=== PATIENT | male | born 1945 | race Caucasian/White ===

== ENCOUNTER → 2017-05-19 | Outpatient (REF) ==
[~2017-05-19] MED LIST: ASPIRIN E.C. 8181 MG PO; CARDURA4 MG PO; COMBIRESP IH; MULTIPLE VITAMI1 CAP PO; PRILOSEC 20MG20 MG PO; VITAMIN D1000 IU PO
[2017-05-19 12:27] LABS: THYROID STIMULATING HORMONE 0.744 uIU/mL (0.465-4.680)
[2017-05-19 12:38] LABS: PSA-TOTAL < 0.10 ng/mL (0-4)
== END ==
LOC: ZLAB.STJ 11:32
PROVIDERS: Internal Medicine
DX: Z01.89 Encounter for other specified special examinations (principal)
CPT/HCPCS: G0103

== ENCOUNTER → 2018-05-18 | Outpatient (REF) ==
[2018-05-18 17:13] LABS: PSA-TOTAL < 0.10 ng/mL (0-4)
== END ==
LOC: ZLAB.WCH 16:13
PROVIDERS: Internal Medicine
DX: Z01.89 Encounter for other specified special examinations (principal)
CPT/HCPCS: G0103

== ENCOUNTER → 2018-07-19 | Outpatient (REF) | LOC: ZLAB.WCH 16:05 | DX: Z01.89 Encounter for other specified special examinations (principal) ==

== ENCOUNTER → 2018-07-23 | Outpatient (REF) | LOC: COL.CARD 16:23 | DX: Z01.818 Encounter for other preprocedural examination (principal) ==

== ENCOUNTER → 2019-09-08 | Outpatient (CLI) | payer MEDICARE, BC | LOC: COL.PUL 10:36 | DX: R06.02 Shortness of breath (principal) ==

== ENCOUNTER → 2021-01-24 | Outpatient (REF) | LOC: ZLAB.WCH 18:06 | DX: Z01.89 Encounter for other specified special examinations (principal) ==

== ENCOUNTER → 2022-12-09 | Outpatient (REF) | LOC: COL.CARD 11:23 | DX: I49.3 Ventricular premature depolarization (principal) ==